=== PATIENT | female | born 1985 | race Two or more races ===

== ENCOUNTER 2022-10-14 08:56 | Outpatient (CLI) | payer OTHER | END 2022-10-14 10:33 | disposition home or self-care (01) | LOC: PRENATAL 08:56 | PROVIDERS: ATTEND Obstetrics & Gynecology Maternal & Fetal Medicine | DX: O36.80X0 Pregnancy with inconclusive fetal viability, not applicable or unspecified (principal); O09.529 Supervision of elderly multigravida, unspecified trimester; Z3A.13 13 weeks gestation of pregnancy ==

== ENCOUNTER 2022-12-04 12:44 | Outpatient (CLI) | payer OTHER | END 2022-12-04 13:45 | disposition home or self-care (01) | LOC: PRENATAL 12:44 | PROVIDERS: ATTEND Obstetrics & Gynecology Maternal & Fetal Medicine | DX: O35.9XX0 Maternal care for (suspected) fetal abnormality and damage, unspecified, not applicable or unspecified (principal); O35.3XX0 Maternal care for (suspected) damage to fetus from viral disease in mother, not applicable or unspecified; O09.529 Supervision of elderly multigravida, unspecified trimester; Z3A.20 20 weeks gestation of pregnancy ==

== ENCOUNTER 2023-02-26 10:03 | Outpatient (CLI) | payer OTHER | END 2023-02-26 12:22 | disposition home or self-care (01) | LOC: PRENATAL 10:03 | PROVIDERS: ATTEND Obstetrics & Gynecology Maternal & Fetal Medicine | DX: O26.849 Uterine size-date discrepancy, unspecified trimester (principal); O36.8199 Decreased fetal movements, unspecified trimester, other fetus; O09.529 Supervision of elderly multigravida, unspecified trimester; Z3A.32 32 weeks gestation of pregnancy ==